=== PATIENT | female | born 1960 | race African-American/Black ===

== ENCOUNTER 2017-11-12 15:02 | Emergency (ER) | payer OTHER ==
--- NOTE | 2017-11-12 15:27 | ED Physician Documentation ---
Lower Extremity Injury - HISTORIAN Historian: patient - HPI Chief Complaint: Lower Extremity Injury (foot injury) Additional Information: Patient states that she was putting a desk on erna and then it toppled on her left foot. Has some immediate pain but has started to swell and the pain is getting worse. No numbness noted. Has been walking on heal. No previous injury. Onset: hours (1100 today) Where: work ([employer]) Severity: moderate Context: direct blow - ROS CONST: no problems - PAST HX Past History: other (hypertension) Immunizations: referred to PCP Allergies/Adverse Reactions: Allergies Allergy/AdvReac Type Severity Reaction Status Date / Time Penicillins Allergy Verified 11/12/17 15:28 Home Medications: Ambulatory Orders Medication Instructions Recorded Tramadol HCl [Ultram] 50 mg PO Q6 PRN #30 tablet 11/12/17 - SOCIAL HX Smoking History: less than 1 pack/day Alcohol Use: occasionally (beer) Drug Use: none - FAMILY HX Family History: other (2 sisters with DM) - VITAL SIGNS Vital Signs: Vital Signs Temp Pulse Resp BP Pulse Ox 98.7 F 84 18 120/80 11/12/17 15:02 11/12/17 16:52 11/12/17 16:52 11/12/17 16:52 - REVIEWED ASSESSMENTS Nursing Assessment Reviewed: Yes Vitals Reviewed: Yes ED Results Lab/Radiology - Radiology Radiology Impressions: Three views of the left foot CLINICAL HISTORY: Injury today. Pain. FINDINGS: Examination left foot in plantar, lateral oblique views demonstrates degenerative changes with narrowing of the interphalangeal joints. There is an intra-articular fracture in the lateral base of the 1st distal phalanx with minimal displacement of fracture fragments. Calcaneal spurs are seen on the lateral view. IMPRESSION: Intra-articular fracture base of the 1st distal phalanx. Degenerative changes. - Orders Orders: ED Orders Category Date Time Status Walking Boot 1T Care 11/12/17 16:29 Active FOOT XR [FOOT 3 VIEWS OR MORE] [RAD] Stat Exams 11/12/17 Completed Ketorolac Tromethamine [Toradol] Med 11/12/17 15:35 Discontinued 60 mg IM NOW ONE Lower Extremities Injury Phy - Physical Exam General Appearance: alert, mild distress Legs: bilateral: non-tender, normal inspection, normal range of motion, no evidence of injury Knees: bilateral: non-tender, normal inspection, normal range of motion, no evidence of injury Ankle: bilateral: non-tender, normal inspection, normal range of motion, no evidence of injury Foot: right foot: non-tender, normal inspection, normal range of motion, no evidence of injury, left foot: limited range of motion (fore foot), pain ( forefoot), soft tissue tenderness (forefoot), swelling, N/A: bone tenderness ( none), deformity (none), ecchymosis (none), other (has swelling and tenderness to the dorsun overt the 1-4th distal meatacarpals) Gait: limited by pain Neuro/Vascular/Tendon: no vascular compromise, motor nml, sensation nml Resp/CVS: chest non-tender, breath sounds nml, heart sounds nml, no resp. distress, lungs clear, reg. rate & rhythm Discharge Clincal Impression: Contusion, foot Phalanx fracture, foot Qualifiers: Encounter type: initial encounter Toe: great toe Fracture type: closed Phalanx : distal Fracture alignment: nondisplaced Laterality: left Qualified Code(s): S92.425A - Nondisplaced fracture of distal phalanx of left great toe, initial encounter for closed fracture Prescriptions: Tramadol HCl [Ultram] 50 mg PO Q6 PRN #30 tablet PRN Reason: Pain Referrals: Robbi Hubbard MD [Primary Care Provider] - 2 Days Additional Instructions: WEar cam boot as needed for pain. Keep foot elevated with ice as much as possible for the next 48 hours. Take Aleve 220mg tablets, 2 tablet twice a dy with food. Take Tramadol and as needed with food ad needed for pain. Condition: Stable Disposition: 01 HOME, SELF-CARE Decision to Admit: NO Date of Decison to Admit: 11/12/17 Decision Time: 16:28
[2017-11-12] MEDS ORDERED: KETOROLAC TROMETHAMINE 60 MG/2 ML VIAL IM ONE (15:35)
--- NOTE | 2017-11-12 16:05 | Diagnostic Imaging Report ---
[facility] [address] [facility].[address] [address] Report Submission Date: Nov 12, 2017 3:56:59 PM CDT Patient Study Name: LUIS CABRERA Date: Nov 12, 2017 3:39:43 PM CDT Modality Type: DX Gender: F Description: LOWER EXTREMITY : 60 Institution: [facility] Physician JOSLYN JONES - DRE Three views of the left foot CLINICAL HISTORY: Injury today. Pain. FINDINGS: Examination left foot in plantar, lateral oblique views demonstrates degenerative changes with narrowing of the interphalangeal joints. There is an intra-articular fracture in the lateral base of the 1st distal phalanx with minimal displacement of fracture fragments. Calcaneal spurs are seen on the lateral view. IMPRESSION: Intra-articular fracture base of the 1st distal phalanx. Degenerative changes. Electronically signed on Nov 12, 2017 3:56:59 PM CDT by: Kvng RAI
[2017-11-12 16:54] VITALS: BP 120/80
== END 2017-11-12 16:40 | disposition home or self-care (01) ==
LOC: ED 15:02
DX: S92.425A Nondisplaced fracture of distal phalanx of left great toe, initial encounter for closed fracture (principal); X58.XXXA Exposure to other specified factors, initial encounter; Y93.89 Activity, other specified; Y92.59 Other trade areas as the place of occurrence of the external cause; Y99.0 Civilian activity done for income or pay
CPT/HCPCS: 73630; J1885; L4360; 96372; 99283

== ENCOUNTER 2018-02-05 16:13 | Outpatient (CLI) | payer OTHER ==
[2018-02-05 17:18] LABS: eGFR (African) > 60; eGFR (Non-African) > 60
== END 2018-02-05 16:14 ==
LOC: LAB 16:13
PROVIDERS: ATTEND Family Medicine
DX: R73.9 Hyperglycemia, unspecified (principal)
CPT/HCPCS: 36415; 80053; 80061; 83036

== ENCOUNTER 2019-04-16 16:23 | Emergency (ER) | payer OTHER ==
--- NOTE | 2019-04-16 16:29 | ED Physician Documentation ---
General Adult - HISTORIAN Historian: patient - HPI Stated Complaint: chest congestion Chief Complaint: Cough/ Upper Respiratory Onset: days ago (4) Timing: still present Severity: mild Further Comments: yes (She reports Sat/Saturday starting with what felt like a cold and cough. She has been taking OTC meds with relief. She denies a fever. She is a smoker. She has no other complaints.) - ROS CONST: recent illness - PAST HX Past History: none Immunizations: UTD Allergies/Adverse Reactions: Allergies Allergy/AdvReac Type Severity Reaction Status Date / Time Penicillins Allergy Verified 11/12/17 15:28 Home Medications: Ambulatory Orders Medication Instructions Recorded Lisinopril [Prinivil] 1 tab PO DAILY 04/16/19 - SOCIAL HX Smoking History: cigarettes Alcohol Use: none Drug Use: none - FAMILY HX Family History: No - VITAL SIGNS Vital Signs: Vital Signs Temp Pulse Resp BP Pulse Ox 120/80 11/12/17 16:52 - REVIEWED ASSESSMENTS Nursing Assessment Reviewed: Yes Vitals Reviewed: Yes General Adult Physical Exam - PHYSICAL EXAM GENERAL APPEARANCE: no distress EENT: eye inspection normal, ENT inspection normal, pharynx normal, no signs of dehydration NECK: normal inspection RESPIRATORY: no resp distress, chest non-tender, wheezes (RUL ) CVS: reg rate & rhythm, heart sounds normal ABDOMEN: soft, no distension BACK: normal inspection, no CVA tenderness SKIN: warm/dry, normal color EXTREMITIES: non-tender, normal range of motion, no evidence of injury, no edema NEURO: oriented X3 Discharge Clincal Impression: Pneumonia Qualifiers: Pneumonia type: due to unspecified organism Laterality: left Lung location: lower lobe of lung Qualified Code(s): J18.1 - Lobar pneumonia, unspecified organism Referrals: Robbi Hubbard MD [Primary Care Provider] - 2 Days Comments: 1. Azithromycin 500 mg take 1 by mouth daily x 3 days 2. Prednisone 20 mg take 1 by mouth daily x 5 days 3. ProAir 90mcg 2 puffs every 4 hours as needed for cough 4. Follow up with PCP in 2 days 5. Return to ER for any increasing concerns Condition: Stable Disposition: 01 HOME, SELF-CARE Decision to Admit: NO Date of Decison to Admit: 04/16/19 Decision Time: 18:08
[2019-04-16 16:37] VITALS: BP 116/70
[2019-04-16] MEDS: IPRATROPIUM/ALBUTEROL SULFATE 3 ML AMPUL.NEB NEB ONE (16:48)
[2019-04-16 18:19] LABS: eGFR (Non-African) > 60
--- NOTE | 2019-04-16 20:06 | Diagnostic Imaging Report ---
DENISE HUA [facility] [address] [facility] [address] [place], [place]. [address] Report Submission Date: Apr 16, 2019 5:16:28 PM CDT Patient Study Name: LUIS CABRERA Date: Apr 16, 2019 4:55:08 PM CDT Modality Type: DX Gender: F Description: CHEST 2VIEW : 60 Institution: [facility] Physician: DENISE HUA Chest, 2 view History: COUGH AND CONGESTION Findings: The heart size is normal. Mild left basilar retrocardiac infiltrate present. . There is no pleural effusion or pneumothorax identified. The osseous structures are normal. Impression: 1. Mild left basilar infiltrate. Electronically signed on Apr 16, 2019 5:16:28 PM CDT by: Isaias RAI
== END 2019-04-16 18:08 | disposition home or self-care (01) ==
LOC: ED 16:23
DX: J18.1 Lobar pneumonia, unspecified organism (principal)
CPT/HCPCS: 71046; 80053; 85025; 94640; 99283